=== PATIENT | female | born 1980 | race African-American/Black ===

== ENCOUNTER 2018-01-11 09:01 | Inpatient (IN) | payer BC ==
[~2018-01-11] VITALS: Ht 162.6 cm; Wt 68.6 kg
[~2018-01-11 09:01] MED LIST: AMOXICILLIN500 MG PO; ASPIRIN EC81 MG PO; ATENOL/CHLOR1 TA1 PO; CIPRO500 MG OR; CLARITIN10 M1 PO; CLONIDINE0.1 MG PO; DENIES CURRENT MEDS; FLEXERIL PO; FLONASE NASAL50 MCG; LORTAB 5 OR; LORTAB 7.5 PO; METOPROL TAR25 MG PO; METOPROL TAR50 MG PO; MOTRIN800 MG OR; MOTRIN800 MG PO; MUCINEX600 MG PO; NAPROXEN500 MG OR; NO MEDS; PENICILLN VK500 MG OR; PERIDEX0.12 % MT; PREVACID15 M1 PO; Q-DRYL25 MG PO; TENORETIC 501 TAB PO; TRAMADOL HCL50 MG OR; TYLENOL325 MG OR; ULTRAM50 M1 PO; ZOFRAN4 MG/TAB PO
[2018-01-11 10:07] LABS: HEMATOCRIT 38.7 % (37.0-47.0); HEMOGLOBIN 12.5 g/dl (12.0-16.0); IMMATURE GRANULOCYTES 0.2 % (0.0-1.0); MEAN CELL VOLUME 91.9 fL CALC (80.0-100.0); MEAN CORPUSCULAR HGB 29.7 pG CALC (26.0-32.0); MEAN CORPUSCULAR HGB CONC 32.3 g/L CALC (32.0-36.0); NEUT# 2.53 thou/uL (2.00-7.15); RED BLOOD COUNT 4.21 mill/uL (4.20-5.60); RED CELL DISTRI WIDTH 13.3 % (11.5-15.5)
[2018-01-11 10:09] LABS: BARBITURATES NEGATIVE (NEGATIVE); COCAINE NEGATIVE (NEGATIVE); METHADONE NEGATIVE (NEGATIVE); OXCYCODONE NEGATIVE (NEGATIVE); TETRAHYDROCANNABIONOL NEGATIVE (NEGATIVE); TRICYLIC ANTIDEPRESSANTS NEGATIVE (NEGATIVE); URINE BILIRUBIN - DIPSTICK NEGATIVE (NEGATIVE); URINE BLOOD DIPSTICK NEGATIVE (NEGATIVE); URINE COLOR YELLOW; URINE GLUCOSE - DIPSTICK NEGATIVE (NEGATIVE); URINE KETONE NEGATIVE (NEGATIVE); URINE LEUK ESTERASE NEGATIVE (NEGATIVE); URINE NITRITE - DIPSTICK NEGATIVE (Negative); URINE PH 6.5 (4.5-8.0); URINE PROTEIN - DIPSTICK NEGATIVE (NEG-TRACE); URINE SPECIFIC GRAVITY <=1.005; URINE UROBILINOGEN - DIPSTICK 0.2 E.U./dL (0.2)
[2018-01-11 10:10] LABS: URINE CLARITY CLEAR
[2018-01-11 10:22] LABS: ALBUMIN 4.7 g/dL (3.2-5.0); ALKALINE PHOSPHATASE 81 u/l (38-126); ANION GAP 18 (6-22 (CALC)); BILIRUBIN, TOTAL 0.7 mg/dL (0.0-1.4); BUN 15 mg/dL (7-17); BUN/CREATININE RATIO 18 (12-20 (CALC)); CARBON DIOXIDE 27 mmol/l (22-30); CHLORIDE 100 mmol/l (95-108); CREATININE 0.9 mg/dL (0.5-1.0); GFR > 60 ML/MIN (>=60 (CALC)); GFR FOR AFR.AMER. > 60 ML/MIN (>=60 (CALC)); POTASSIUM 3.9 mmol/l (3.5-5.1); SGOT/AST 20 u/l (14-36); SGPT/ALT 25 u/l (9-52); SODIUM 141 mmol/l (137-146); TOTAL PROTEIN 8.1 g/dL (6.3-8.2)
[2018-01-11] MEDS ORDERED: LOSARTAN POT50 MG PO (11:26)
[2018-01-11] MEDS ORDERED: LOPRESSOR 550 MG/TAB PO (11:26)
[2018-01-11] MEDS ORDERED: DICLOFENAC SODI75 MG PO (11:27)
[2018-01-11] MEDS ORDERED: POTASSIUM CHLO10 ME4 PO (11:27)
[2018-01-11] MEDS ORDERED: FLEXERIL5 MG PO (11:28)
[2018-01-11] MEDS ORDERED: METOPROL TAR25 MG PO (13:10)
[2018-01-11 14:58] VITALS: BP 125/72
[2018-01-11 17:06] VITALS: BP 106/71
[2018-01-11 19:15] VITALS: BP 120/83
[2018-01-11] MEDS ORDERED: CLONIDINE0.1 MG PO (20:45)
== END 2018-01-11 22:35 | disposition home or self-care (01) | DRG 305 ==
LOC: ED 09:01 → ED-I 11:11 → ED 11:27 → ED-I 11:28 → MS2 13:51
PROVIDERS: Emergency Medicine; ADMIT Internal Medicine; ATTEND Internal Medicine
DX: I10 Essential (primary) hypertension (principal)